=== PATIENT | female | born 1995 | race Caucasian/White ===

== ENCOUNTER 2022-11-06 12:29 | Inpatient (IN) ==
[2022-11-06] MEDS ORDERED: KETOROLAC TROMETHAMINE 15 MG/ML VIAL IV STA (12:48)
[2022-11-06] MEDS ORDERED: SODIUM CHLORIDE 0.9% 1000ML 1,000 ML IV STA (12:48)
[2022-11-06] MEDS ORDERED: ONDANSETRON INJ 2 MG/ML 2 ML VIAL IV STA (12:48)
--- NOTE | 2022-11-06 12:56 | Emergency Department Note ---
ED Provider Note History of Present Illness Chief Complaint: Abdominal Pain Stated Complaint: AB PAIN, VOMITING Time Seen by Provider: 11/06/22 12:35 26-year-old female who presents to the emergency department via ambulance for evaluation of generalized abdominal cramping, nausea, vomiting and watery diarrhea. The patient reports that she had soup last evening for dinner, then developed nausea and vomiting. The patient was able to go to bed, but awoke several times throughout the night, and awakened this morning with watery diarrh ea. The patient reports that she has had a recent upper endoscopy and colonoscopy, and follows with [facility]. 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 She was supposed to have an MRI study, however her insurance refused to cover it since it was closely related to her CT imaging that she has already had. The patient reports that she has a Zofran tablets at home, but was unable to keep them down. She reports feeling extremely dehydrated. The patient occasionally will self-induced vomiting to help with her pain. She does admit to daily marijuana use for history of PTSD and anxiety. She gets her marijuana from a dispensary, and has not had any prior reactions to the marijuana. The patient does report feeling chilled, but did not take her temperature at home this morning. Patient denies , urinary symptoms, recent upper respiratory infections or chest pain. The patient rates her overall discomfort a 7 out of 10. Later in the patient's evaluation, she reports that she did have a similar episode last where she was admitted to [facility] in [place] for similar episode. She does report having an initial CT, and does not know if her second imaging was a CT or MRI. She spent 4 days at their facility. Home Medications Medication Instructions Recorded Confirmed Type buspirone 5 mg tablet 5 mg PO DAILY 11/06/22 11/06/22 History escitalopram oxalate 20 mg tablet 20 mg PO DAILY 11/06/22 11/06/22 History norethindrone acetate 1.5 1 tab PO DAILY 11/06/22 11/06/22 History mg-ethinyl estradiol 30 mcg tablet (Junel) omeprazole 20 mg capsule,delayed 20 mg PO DAILY 11/06/22 11/06/22 History release ondansetron HCl 4 mg tablet 4 mg PO Q8H PRN Vomiting 03/10/23 03/10/23 History Allergies Allergy/AdvReac Type Severity Reaction Status Date / Time No Known Allergies Allergy Verified 11/05/20 16:17 Past Med/Surg History Medical History Anxiety COVID-19 History of varicella vaccination HPV (human papilloma virus) infection No significant past medical history Surgical History History of colonoscopy History of esophagogastroduodenoscopy (EGD) S/P wisdom tooth extraction Family History Grandmother (Paternal) Breast cancer Grandfather (Paternal) Diabetes Mother Dyslipidemia Denies family history of Ovarian cancer Colorectal cancer Uterine cancer Social History Smoking Status: Never smoker Second Hand Exposure: No; Hx Alcohol Use: No Hx Substance Use: Yes (medical marijuana card) Prescribed Medications: Marijuana Last Used Substance: Hours (ago) Preferred Language: Hong Konger Visual Impairment: No Limitations Hearing Ability: Normal Pomology Teacher Required: No Beliefs That Will Affect Care: None marital status: Single Current Living Situation: Alone current occupational status: employed Feels Safe at Home: Yes Childhood Exposure to Second-Hand Smoke: No Dental Care, Regularly: Yes Physical Activity Frequency: 3-4 Times per Week Seatbelt Use: always Sunscreen Use: Yes Physical Exam Vital Signs Vital Signs - 24 hr 11/06/22 12:35 11/06/22 14:00 11/06/22 15:23 Temperature 36.6 C Temperature Source Oral Pulse Rate 88 Pulse Rate [Radial] 81 86 Pulse Rhythm [Radial] Regular Pulse Strength [Radial] Normal Respiratory Rate 16 15 20 Respiratory Effort / Characteristics Non-Labored Spontaneous Non-Labored Spontaneous Non-Labored Respiratory Depth Normal Normal Normal Respiratory Pattern Regular Regular Blood Pressure 127/88 Blood Pressure [Right Arm] 154/97 H 104/68 Blood Pressure Mean 101 Blood Pressure Mean [Right Arm] 116 80 Blood Pressure Position Lying Blood Pressure Position [Right Arm] Lying Pulse Oximetry 99 98 95 Oxygen Delivery Method Room Air Room Air Room Air Sepsis Recent Fever Within 48 Hours No Sepsis New/Unexplained Change in Mental Status N/A Sepsis Action Taken by Nursing No Action Required CONSTITUTIONAL: Healthy and well nourished. Patient appears in moderate discomfort, holding an emesis bag. HEENT: Normocephalic, atraumatic. Pupils equal, round and reactive. No scleral icterus or conjunctival injection/pallor. Mucous membranes are dry. NECK: Full active range of motion without discomfort. LYMPHATICS: No cervical chain adenopathy. RESPIRATORY: Clear to auscultation bilaterally with no wheezing, crackles, rhonchi or stridor. CARDIOVASCULAR: Regular rate and rhythm with no murmurs, rubs or gallops. GASTROINTESTINAL: Bowel sounds present in all quadrants. Patient has generalized and nonfocal abdominal tenderness to palpation without rigidity, guarding or rebound. Negative CVA tenderness. Negative McBurney's point tenderness. MUSCULOSKELETAL: Full range of motion of all joints without discomfort. INTEGUMENTARY: No rash or other significant dermatologic conditions noted. HEMATOLOGIC: No ecchymosis or petechiae. PSYCHIATRIC: Positive affect. NEUROLOGIC: No focal neurologic deficits noted. Course Course Patient history and physical exam were performed. Nurses notes were reviewed. Vital signs were reviewed and were normal. I did review prior medical records. Unfortunately I do not have easy access to [facility] records. I am able to see her PCP office notes, and showed that she had explosive diarrhea 1 year ago with negative stool cultures and C. difficile testing. IV access was established, and labs were drawn. The patient was hydrated with a liter of normal saline, and administered IV Toradol and Zofran for pain and nausea. Review of labs shows an elevated white count of over 14,000, and elevated platelet count of 412. While awaiting the remainder of her labs to come back, I did reassess the patient who reported persistent nausea after 2 doses of IV Zofran (1 being administered on route to the ED). The patient was then ordered IV Phenergan. Further review of labs shows relatively normal CMP. CT with IV contrast of the abdomen and pelvis shows multiple thickened distal small bowel loops resulting in an upstream bowel obstruction. Further review of labs shows a mildly elevated random glucose and elevated C-reactive protein of 2.21. Urinalysis shows 4+ ketonuria and trace leukocyte esterases. This was a contaminated sample, and urine cultures are pending. Serum was negative. Urine drug screen was only positive for marijuana. The case was further discussed with Dr. Bey, ED attending physician, who recommended hospitalist consultation. The patient was reevaluated and reported feeling much better after IV Phenergan. She was actually able to go to the bathroom and produce a small bowel movement. Findings were discussed with the patient, with recommendations for admission; the patient was in agreement. COVID-19 swab was ordered and was normal. The case was further discussed with the [facility] team, who agrees with admission. Please see their dictation for further treatment and final disposition. Administered Medications Sodium Chloride (Nss 1000ml) 1,000 mls @ 125 mls/hr IV .Q8H ADAM Stop: 11/07/22 09:42 Last Admin: 11/06/22 18:13 Dose: 125 mls/hr Documented By: CALE Methylprednisolone (Methylprednisolone 40 Mg/Ml Vial) 40 mg IV DAILY ADAM Stop: 11/09/22 17:42 Last Admin: 11/06/22 18:44 Dose: Not Given Documented By: CALE Discontinued Medications Sodium Chloride (Nss 1000ml) 1,000 mls @ 999 mls/hr IV .Q1H1M STA Stop: 11/06/22 13:48 Last Infusion: 11/06/22 14:14 Dose: 0 mls/hr Documented By: Admin: 11/06/22 13:06 Dose: 999 mls/hr Documented By: MARBELLA Promethazine HCl (Phenergan) 25 mg in 51 mls @ 204 mls/hr IV NOW STA Stop: 11/06/22 13:59 Last Infusion: 11/06/22 14:14 Dose: 0 mls/hr Documented By: Admin: 11/06/22 13:56 Dose: 204 mls/hr Documented By: MARBELLA Ioversol (Optiray 350 100ml) 90 ml IV ONCE ONE Stop: 11/06/22 14:22 Last Admin: 11/06/22 14:21 Dose: 90 ml Documented By: SETH Ketorolac Tromethamine (Ketorolac Tromethamine 15 Mg/Ml Vial) 10 mg IV NOW STA Stop: 11/06/22 12:49 Last Admin: 11/06/22 13:06 Dose: 10 mg Documented By: MARBELLA Ondansetron HCl (Ondansetron Inj 2 Mg/Ml 2 Ml Vial) 4 mg IV NOW STA Stop: 11/06/22 12:49 Last Admin: 11/06/22 13:06 Dose: 4 mg Documented By: MARBELLA Medical Decision Making Medical Records Attestation: I reviewed the patient's medical records. Home Medications was personally reviewed by me Laboratory Data Attestation: I reviewed the patient's lab results. 11/06/22 12:56 11/06/22 12:56 Lab Results 11/06/22 11/06/22 11/06/22 Range/Units 12:55 12:56 12:56 WBC 14.06 H (4.8-10.8) K/ul RBC 4.89 (4.20-5.40) M/uL Hgb 13.9 (12.0-16.0) g/dl Hct 41.3 (37.0-47.0) % MCV 84.5 (80.0-100.0) fL MCH 28.4 (25.0-34.0) pg MCHC 33.7 (32.0-36.0) g/dL RDW Std Deviation 41.1 (36.4-46.3) fL RDW Coeff of Cyrus 13.2 (11.5-14.5) % Plt Count 412 H (130-400) K/uL MPV 9.1 L (9.4-12.4) fL Immature Gran % (Auto) 0.4 % Neut % (Auto) 93.9 % Lymph % (Auto) 4.2 % Lassen % (Auto) 1.4 % Eos % (Auto) 0.0 % Baso % (Auto) 0.1 % Neut # (Auto) 13.19 H (1.40-6.50) K/uL Lymph # (Auto) 0.59 L (1.2-3.4) K/uL Lassen # (Auto) 0.20 (0.11-0.59) K/uL Eos # (Auto) 0.00 (0-0.50) K/uL Baso # (Auto) 0.02 (0-0.2) K/uL Immature Gran # (Auto) 0.06 (0.01-0.20) K/uL Sodium 138 (136-145) mmol/L Potassium 3.7 (3.5-5.1) mmol/L Chloride 105 (98-107) mmol/L Carbon Dioxide 19 L (21-32) mmol/L Anion Gap 14 H (3-11) BUN 9 (6-23) mg/dl Creatinine 0.80 (0.6-1.2) mg/dl Est Cr Clr Drug Dosing 103.8 ml/min Est GFR ( Amer) 116.3 ml/min Est GFR (Non-Af Amer) 100.3 ml/min BUN/Creatinine Ratio 11.3 (10-20) Glucose 129 H (70-99(Fasting)) mg/dl Calcium 9.5 (8.5-10.1) mg/dl Total Bilirubin 0.5 (0.2-1.0) mg/dl AST 18 (13-39) U/L ALT 15 (7-52) U/L Alkaline Phosphatase 42 (34-104) U/L C-Reactive Protein (0-0.5) mg/dl Total Protein 7.6 (6.0-8.3) gm/dl Albumin 4.3 (3.4-5.0) gm/dl Globulin 3.3 (2.5-4.0) gm/dl Albumin/Globulin Ratio 1.3 (0.9-2) Lipase 11 (11-82) U/L HCG, Qual (Negative) Urine Color Yellow Urine Appearance Clear (Clear) Urine pH 6.0 (4.5-7.5) Ur Specific Cushing 1.028 (1.000-1.030) Urine Protein Trace H (Negative) Urine Glucose (UA) Negative (Negative) Urine Ketones 4+ H (Negative) Urine Blood Negative (Negative) Urine Nitrite Negative (Negative) Urine Bilirubin Negative (Negative) Urine Urobilinogen Negative (Negative) Ur Leukocyte Esterase Trace H (Negative) Urine WBC (Auto) 5-10 H (0-5) /hpf Urine RBC (Auto) 5-10 H (0-4) /hpf U Hyaline Cast (Auto) 5-10 H (0-5) /lpf U Epithel Cells (Auto) >30 H (0-5) /lpf Urine Bacteria (Auto) 1+ H (Negative) Urine Opiates Screen (Neg) Ur Methadone, Qual (Neg) Urine Barbiturates (Neg) Ur Phencyclidine (PCP) (Neg) U Amphetamin/Meth Scrn (Neg) MDMA (Ecstasy) Screen (Neg) U Benzodiazepines Scrn (Neg) Ur Cocaine Metabolite (Neg) U Marijuana (THC) Screen (Neg) SARS-CoV-2, RNA, NAAT (NEGATIVE) 11/06/22 11/06/22 11/06/22 Range/Units 12:56 12:56 13:56 WBC (4.8-10.8) K/ul RBC (4.20-5.40) M/uL Hgb (12.0-16.0) g/dl Hct (37.0-47.0) % MCV (80.0-100.0) fL MCH (25.0-34.0) pg MCHC (32.0-36.0) g/dL RDW Std Deviation (36.4-46.3) fL RDW Coeff of Cyrus (11.5-14.5) % Plt Count (130-400) K/uL MPV (9.4-12.4) fL Immature Gran % (Auto) % Neut % (Auto) % Lymph % (Auto) % Lassen % (Auto) % Eos % (Auto) % Baso % (Auto) % Neut # (Auto) (1.40-6.50) K/uL Lymph # (Auto) (1.2-3.4) K/uL Lassen # (Auto) (0.11-0.59) K/uL Eos # (Auto) (0-0.50) K/uL Baso # (Auto) (0-0.2) K/uL Immature Gran # (Auto) (0.01-0.20) K/uL Sodium (136-145) mmol/L Potassium (3.5-5.1) mmol/L Chloride (98-107) mmol/L Carbon Dioxide (21-32) mmol/L Anion Gap (3-11) BUN (6-23) mg/dl Creatinine (0.6-1.2) mg/dl Est Cr Clr Drug Dosing ml/min Est GFR ( Amer) ml/min Est GFR (Non-Af Amer) ml/min BUN/Creatinine Ratio (10-20) Glucose (70-99(Fasting)) mg/dl Calcium (8.5-10.1) mg/dl Total Bilirubin (0.2-1.0) mg/dl AST (13-39) U/L ALT (7-52) U/L Alkaline Phosphatase (34-104) U/L C-Reactive Protein 2.21 H (0-0.5) mg/dl Total Protein (6.0-8.3) gm/dl Albumin (3.4-5.0) gm/dl Globulin (2.5-4.0) gm/dl Albumin/Globulin Ratio (0.9-2) Lipase (11-82) U/L HCG, Qual Negative (Negative) Urine Color Urine Appearance (Clear) Urine pH (4.5-7.5) Ur Specific Cushing (1.000-1.030) Urine Protein (Negative) Urine Glucose (UA) (Negative) Urine Ketones (Negative) Urine Blood (Negative) Urine Nitrite (Negative) Urine Bilirubin (Negative) Urine Urobilinogen (Negative) Ur Leukocyte Esterase (Negative) Urine WBC (Auto) (0-5) /hpf Urine RBC (Auto) (0-4) /hpf U Hyaline Cast (Auto) (0-5) /lpf U Epithel Cells (Auto) (0-5) /lpf Urine Bacteria (Auto) (Negative) Urine Opiates Screen Neg (Neg) Ur Methadone, Qual Neg (Neg) Urine Barbiturates Neg (Neg) Ur Phencyclidine (PCP) Neg (Neg) U Amphetamin/Meth Scrn Neg (Neg) MDMA (Ecstasy) Screen Neg (Neg) U Benzodiazepines Scrn Neg (Neg) Ur Cocaine Metabolite Neg (Neg) U Marijuana (THC) Screen Pos H (Neg) SARS-CoV-2, RNA, NAAT (NEGATIVE) 11/06/22 Range/Units 15:00 WBC (4.8-10.8) K/ul RBC (4.20-5.40) M/uL Hgb (12.0-16.0) g/dl Hct (37.0-47.0) % MCV (80.0-100.0) fL MCH (25.0-34.0) pg MCHC (32.0-36.0) g/dL RDW Std Deviation (36.4-46.3) fL RDW Coeff of Cyrus (11.5-14.5) % Plt Count (130-400) K/uL MPV (9.4-12.4) fL Immature Gran % (Auto) % Neut % (Auto) % Lymph % (Auto) % Lassen % (Auto) % Eos % (Auto) % Baso % (Auto) % Neut # (Auto) (1.40-6.50) K/uL Lymph # (Auto) (1.2-3.4) K/uL Lassen # (Auto) (0.11-0.59) K/uL Eos # (Auto) (0-0.50) K/uL Baso # (Auto) (0-0.2) K/uL Immature Gran # (Auto) (0.01-0.20) K/uL Sodium (136-145) mmol/L Potassium (3.5-5.1) mmol/L Chloride (98-107) mmol/L Carbon Dioxide (21-32) mmol/L Anion Gap (3-11) BUN (6-23) mg/dl Creatinine (0.6-1.2) mg/dl Est Cr Clr Drug Dosing ml/min Est GFR ( Amer) ml/min Est GFR (Non-Af Amer) ml/min BUN/Creatinine Ratio (10-20) Glucose (70-99(Fasting)) mg/dl Calcium (8.5-10.1) mg/dl Total Bilirubin (0.2-1.0) mg/dl AST (13-39) U/L ALT (7-52) U/L Alkaline Phosphatase (34-104) U/L C-Reactive Protein (0-0.5) mg/dl Total Protein (6.0-8.3) gm/dl Albumin (3.4-5.0) gm/dl Globulin (2.5-4.0) gm/dl Albumin/Globulin Ratio (0.9-2) Lipase (11-82) U/L HCG, Qual (Negative) Urine Color Urine Appearance (Clear) Urine pH (4.5-7.5) Ur Specific Cushing (1.000-1.030) Urine Protein (Negative) Urine Glucose (UA) (Negative) Urine Ketones (Negative) Urine Blood (Negative) Urine Nitrite (Negative) Urine Bilirubin (Negative) Urine Urobilinogen (Negative) Ur Leukocyte Esterase (Negative) Urine WBC (Auto) (0-5) /hpf Urine RBC (Auto) (0-4) /hpf U Hyaline Cast (Auto) (0-5) /lpf U Epithel Cells (Auto) (0-5) /lpf Urine Bacteria (Auto) (Negative) Urine Opiates Screen (Neg) Ur Methadone, Qual (Neg) Urine Barbiturates (Neg) Ur Phencyclidine (PCP) (Neg) U Amphetamin/Meth Scrn (Neg) MDMA (Ecstasy) Screen (Neg) U Benzodiazepines Scrn (Neg) Ur Cocaine Metabolite (Neg) U Marijuana (THC) Screen (Neg) SARS-CoV-2, RNA, NAAT NEGATIVE (NEGATIVE) Imaging Data Attestation: I personally reviewed and interpreted this imaging study as follows: My Impression: My interpretation of the CT with IV contrast of the abdomen and pelvis shows evidence for a small bowel obstruction with thickening of the distal small bowel loops. No abdominal free air appreciated. Radiologist report was also reviewed with concurrence. Radiologist's Impression: Abdomen/Pelvis CT 11/06/22 12:48 CT SCAN OF THE ABDOMEN AND PELVIS WITH IV CONTRAST CLINICAL HISTORY: Generalized abdominal pain. Nausea and vomiting. COMPARISON STUDY: No priors. TECHNIQUE: Following the IV administration of 90 cc of Optiray 350, CT scan of the abdomen and pelvis is performed from the lung bases to the proximal femora. Images are reviewed in the axial, sagittal, and coronal planes. IV contrast was administered without complication. A dose lowering technique was utilized adhering to the principles of ALARA. CT DOSE: 310.44 mGy.cm FINDINGS: Lung bases: The heart is normal in size and without pericardial effusion. The lung bases are clear. A small hiatal hernia is noted. Liver: The contrast-enhanced liver is mildly enlarged measuring 20.5 cm in length. The liver is otherwise normal in contour and attenuation. There is no intrahepatic biliary ductal dilatation. The hepatic veins and portal veins are patent. A 1.4 cm low-attenuation lesion in the right lobe of the liver seen on image #33 of 94 shows foci of peripheral nodular enhancement and likely represents a hemangioma. Gallbladder: Unremarkable. Spleen: Normal in size and attenuation. Pancreas: Unremarkable. Adrenal glands: Unremarkable. Kidneys: The contrast enhanced kidneys are normal in size and without hydronephrosis. The kidneys enhance symmetrically. Abdominal vasculature: The abdominal aorta is normal in course and caliber. Bowel: There are significantly thick-walled and hyperemic loops of mid to distal small bowel in the central pelvis with surrounding inflammation and interloop fluid. This appears to be at the distal/terminal ileum. There is a focal transition point within these inflamed bowel loops seen on axial image #374. The upstream small bowel loops are dilated and fluid-filled, measuring up to 5.1 cm in diameter. This is consistent with a small bowel obstruction related to the inflammatory process. The distal small bowel and colon are decompressed. There is no evidence of fistula or mass lesion. No pneumatosis intestinalis or portal venous gas is seen. There is no organized fluid collection to suggest abscess. The appendix is well-visualized and normal. Peritoneum: There is no intraperitoneal free air. There is free fluid in the pelvis. Lymphadenopathy: None. Pelvic viscera: The bladder is decompressed and appears thick walled. The uterus and adnexa are normal as visualized. A moderate volume of free fluid is noted in the cul-de-sac. Skeletal structures: There is mild lumbar scoliosis. No lytic or blastic lesions are seen. IMPRESSION: 1. There are significantly thick-walled and hyperemic loops of mid to distal small bowel in the pelvis with surrounding inflammation and interloop fluid. The appearance is consistent with a nonspecific enteritis, and this could be infectious or related to inflammatory bowel disease. 2. The inflamed bowel loops cause upstream small bowel obstruction. 3. There is a moderate volume of free fluid in the cul-de-sac. 4. No intraperitoneal free air is identified. No organized fluid collection is seen suggest abscess. 5. The bladder is decompressed and appears thick-walled. Correlate with clinical findings and urinalysis. 6. An indeterminant low-attenuation hepatic lesion is incompletely characterized but likely represents a hemangioma. 7. Additional findings as above. ACT 112: Negative or not required by law. Electronically signed by: Marcio Knapp M.D. 11/06/2022 2:45 PM MDM Narrative See ED course for further details of today's visit. The patient presents to the emergency department with complaint of generalized abdominal pain, nausea, vomiting and watery diarrhea. Given the patient's history of distal small bowel stenosis, I did recommend CT imaging, which showed a small bowel obstruction with notable inflammation of distal small bowel loops. Patient did have excellent nausea control with additional IV Phenergan, which was administered after 2 initial doses of IV Zofran. At this point, I do feel that the patient warrants observation or admission until her small bowel obstruction reverses. I suspect the hospitalist team may also consider doing MRI enterography as well for further characterization of the distal small bowel loops. Patient does not have any free air on CT imaging to suggest perforation. Additional laboratory studies are not suggestive of pancreatitis, cholecystitis or hepatitis. CT imaging also does not show evidence for appendicitis, diverticulitis or obstructive uropathy. Impression Small bowel obstruction, Nausea, vomiting and diarrhea Discharge Plan Visit Data Chief Complaint: Abdominal Pain Stated Complaint: AB PAIN, VOMITING ED Provider: Efra Bey ED Midlevel Provider: Jerry Tello Discharge Problem: Small bowel obstruction, Nausea, vomiting and diarrhea Patient Disposition: Admitted As Inpatient Discharge Instructions Interventions: ED Discharge Assessment Last Done: 11/06/22 17:16
[2022-11-06 13:29] LABS: Hematocrit (blood only) 41.3 % (37.0-47.0); Hemoglobin 13.9 g/dl (12.0-16.0); Mean Corpuscular Hemoglobin 28.4 pg (25.0-34.0); Mean Corpuscular Hgb Conc 33.7 g/dL (32.0-36.0); Mean Corpuscular Volume 84.5 fL (80.0-100.0); Mean Platelet Volume 9.1 fL (9.4-12.4); Platelet Count 412 K/uL (130-400); RDW Coefficient of Variation 13.2 % (11.5-14.5); RDW Standard Deviation 41.1 fL (36.4-46.3); Red Blood Count 4.89 M/uL (4.20-5.40); White Blood Count 14.06 K/ul (4.8-10.8)
[2022-11-06 13:43] LABS: Albumin Globulin Ratio 1.3 (0.9-2); Albumin Level 4.3 gm/dl (3.4-5.0); BUN Creatinine Ratio 11.3 (10-20); Bilirubin,Total 0.5 mg/dl (0.2-1.0); Calcium 9.5 mg/dl (8.5-10.1); Creatinine Clr Calc Pharmacy 103.8 ml/min; Est GFR (African American) 116.3 ml/min; Est GFR (Non-African American) 100.3 ml/min; Globulin 3.3 gm/dl (2.5-4.0); Potassium 3.7 mmol/L (3.5-5.1); Total Protein 7.6 gm/dl (6.0-8.3)
[2022-11-06] MEDS ORDERED: PROMETHAZINE 25 MG/51 ML BAG IV STA (13:45)
[2022-11-06 13:47] LABS: Basophils # (auto) 0.02 K/uL (0-0.2); Basophils % (auto) 0.1 %; Immature Granulocytes # (auto) 0.06 K/uL (0.01-0.20); Immature Granulocytes % (auto) 0.4 %; Lymphocytes # (auto) 0.59 K/uL (1.2-3.4); Lymphocytes % (auto) 4.2 %; Monocytes % (auto) 1.4 %; Neutrophils # (auto) 13.19 K/uL (1.40-6.50); Neutrophils % (auto) 93.9 %
[2022-11-06 14:06] LABS: Pregnancy Test, Serum Negative (Negative)
[2022-11-06] MEDS ORDERED: OPTIRAY 350 100ml IV ONE (14:21)
[2022-11-06 14:38] LABS: Appearance Urine Clear (Clear); Bacteria Urine Automated 1+ (Negative); Bilirubin Urine Negative (Negative); Blood Urine Negative (Negative); Color Urine Yellow; Epithelial Cell Urine Auto >30 /lpf (0-5); Glucose Urine UA Negative (Negative); Ketones Urine 4+ (Negative); Leukocyte Esterase Urine Trace (Negative); Nitrite Urine Negative (Negative); Protein Urine Trace (Negative); Specific Gravity Urine 1.028 (1.000-1.030); Urobilinogen Urine Negative (Negative)
[2022-11-06 14:44] LABS: Amphetamines+Metham, Urine Neg (Neg); Barbiturates, Urine Neg (Neg); Benzodiazepine, Urine Neg (Neg); Cocaine, Urine Neg (Neg); MDMA (Ecstacy), Urine Neg (Neg); Methadone, Urine Neg (Neg); Opiate, Urine Neg (Neg); Phencyclidine, Urine Neg (Neg)
--- NOTE | 2022-11-06 14:47 | CT Scan Report ---
CT SCAN OF THE ABDOMEN AND PELVIS WITH IV CONTRAST CLINICAL HISTORY: Generalized abdominal pain. Nausea and vomiting. COMPARISON STUDY: No priors. TECHNIQUE: Following the IV administration of 90 cc of Optiray 350, CT scan of the abdomen and pelvi s is performed from the lung bases to the proximal femora. Images are reviewed in the axial, sagittal , and coronal planes. IV contrast was administered without complication. A dose lowering technique wa s utilized adhering to the principles of ALARA. CT DOSE: 310.44 mGy.cm FINDINGS: Lung bases: The heart is normal in size and without pericardial effusion. The lung bases are clear. A small hiatal hernia is noted. Liver: The contrast-enhanced liver is mildly enlarged measuring 20.5 cm in length. The liver is other reyes normal in contour and attenuation. There is no intrahepatic biliary ductal dilatation. The hepat ic veins and portal veins are patent. A 1.4 cm low-attenuation lesion in the right lobe of the liver seen on image #33 of 94 shows foci of peripheral nodular enhancement and likely represents a hemangio ma. Gallbladder: Unremarkable. Spleen: Normal in size and attenuation. Pancreas: Unremarkable. Adrenal glands: Unremarkable. Kidneys: The contrast enhanced kidneys are normal in size and without hydronephrosis. The kidneys enh ance symmetrically. Abdominal vasculature: The abdominal aorta is normal in course and caliber. Bowel: There are significantly thick-walled and hyperemic loops of mid to distal small bowel in the c entral pelvis with surrounding inflammation and interloop fluid. This appears to be at the distal/ter hayley ileum. There is a focal transition point within these inflamed bowel loops seen on axial image #374. The upstream small bowel loops are dilated and fluid-filled, measuring up to 5.1 cm in diameter . This is consistent with a small bowel obstruction related to the inflammatory process. The distal s mall bowel and colon are decompressed. There is no evidence of fistula or mass lesion. No pneumatosis intestinalis or portal venous gas is seen. There is no organized fluid collection to suggest abscess . The appendix is well-visualized and normal. Peritoneum: There is no intraperitoneal free air. There is free fluid in the pelvis. Lymphadenopathy: None. Pelvic viscera: The bladder is decompressed and appears thick walled. The uterus and adnexa are ignacio l as visualized. A moderate volume of free fluid is noted in the cul-de-sac. Skeletal structures: There is mild lumbar scoliosis. No lytic or blastic lesions are seen. IMPRESSION: 1. There are significantly thick-walled and hyperemic loops of mid to distal small bowel in the pelvi s with surrounding inflammation and interloop fluid. The appearance is consistent with a nonspecific enteritis, and this could be infectious or related to inflammatory bowel disease. 2. The inflamed bowel loops cause upstream small bowel obstruction. 3. There is a moderate volume of free fluid in the cul-de-sac. 4. No intraperitoneal free air is identified. No organized fluid collection is seen suggest abscess. 5. The bladder is decompressed and appears thick-walled. Correlate with clinical findings and urinaly sis. 6. An indeterminant low-attenuation hepatic lesion is incompletely characterized but likely represent s a hemangioma. 7. Additional findings as above. ACT 112: Negative or not required by law. Electronically signed by: Marcio Knapp M.D. 11/06/2022 2:45 PM
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
--- NOTE | 2022-11-06 16:15 | Communication Note ---
Date of Service: November 06, 2022 History and physical exam performed by me. 26-year-old woman who presents with intermittent nausea, vomiting, abdominal pain and bloating. This episode started last night. Has been having this intermittently for a while. Follows up with gastroenterology. Exam General: No acute distress Eyes: PERRL, conjunctivae normal, not pale, anicteric sclerae, EOM intact bilaterally ENMT: External ear and nose normal, oropharynx normal Respiratory: Normal respiratory effort, no respiratory distress, lungs clear to auscultation, no crackles and no wheezes Cardiovascular: RRR S1 S2 Gastrointestinal (Abdomen): Abdomen is not distended, soft, non-tender to palpation, no guarding, no palpable hepatosplenomegaly, normal bowel sounds Musculoskeletal: No pedal edema Neurologic: Alert and oriented x 3, No focal weakness, sensation grossly intact Psychiatric: Alert and oriented x 3, euthymic affect Labs notable for WBC of 14, platelet of 412, bicarb of 19, anion gap of [address] noted significantly thick-walled and hyperemic loops of mid to distal small bowel in the pelvis with surrounding inflammation and interloop fluid, consistent with nonspecific enteritis could be related to infectious or inflammatory bowel disease. Bowel cause upstream small bowel obstruction. Moderate volume of free fluid in the cul-de-sac. No intraperitoneal free. An indeterminate low attenuation hepatic lesion is incompletely characterized but likely representing hemangioma. We will keep n.p.o. for today. IV fluids Zofran as needed nausea and vomiting. Discussed with GI physician. GI recommends getting an MRE. Also to do Possible IBD. GI recommends IV Solu-Medrol 40 mg daily for 3 days Will follow up surg eval Other plans as detailed by Mere Busby PA-C
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
[2022-11-06] MEDS ORDERED: POLYETHYLENE (MIRALAX) 17 GM PACK PO PRN (17:43)
[2022-11-06] MEDS ORDERED: ACETAMINOPHEN 325 MG TAB PO PRN (17:43)
[2022-11-06] MEDS ORDERED: ONDANSETRON INJ 2 MG/ML 2 ML VIAL IV PRN (17:43)
[2022-11-06] MEDS: SODIUM CHLORIDE 0.9% 1000ML 1,000 ML IV SCH (18:13)
[2022-11-06] MEDS: methylPREDNISolone 40 MG in SYRINGE 0 ML IV SCH (20:47)
[2022-11-07] MEDS: SODIUM CHLORIDE 0.9% 1000ML 1,000 ML IV SCH (01:47)
[2022-11-07 06:38] LABS: Hemoglobin 10.8 g/dl (12.0-16.0); Immature Granulocytes # (auto) 0.05 K/uL (0.01-0.20); Immature Granulocytes % (auto) 0.7 %; Lymphocytes # (auto) 0.75 K/uL (1.2-3.4); Lymphocytes % (auto) 9.9 %; Mean Corpuscular Hgb Conc 33.8 g/dL (32.0-36.0); Mean Corpuscular Volume 85.8 fL (80.0-100.0); Mean Platelet Volume 8.9 fL (9.4-12.4); Monocytes # (auto) 0.09 K/uL (0.11-0.59); Monocytes % (auto) 1.2 %; Neutrophils # (auto) 6.69 K/uL (1.40-6.50); Neutrophils % (auto) 88.2 %; Platelet Count 295 K/uL (130-400); RDW Coefficient of Variation 13.6 % (11.5-14.5); RDW Standard Deviation 42.6 fL (36.4-46.3); Red Blood Count 3.73 M/uL (4.20-5.40); White Blood Count 7.58 K/ul (4.8-10.8)
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
[2022-11-07 06:55] LABS: Albumin Globulin Ratio 1.4 (0.9-2); Albumin Level 3.2 gm/dl (3.4-5.0); BUN Creatinine Ratio 10.6 (10-20); Bilirubin,Total 0.3 mg/dl (0.2-1.0); Creatinine Clr Calc Pharmacy 141.8 ml/min; Est GFR (African American) 139.3 ml/min; Est GFR (Non-African American) 120.2 ml/min; Globulin 2.3 gm/dl (2.5-4.0); Total Protein 5.5 gm/dl (6.0-8.3)
[2022-11-07] MEDS ORDERED: ESCITALOPRAM OXALATE 20 MG TAB PO SCH (09:00)
[2022-11-07] MEDS ORDERED: busPIRone 5 MG TAB PO SCH (09:00)
[2022-11-07] MEDS: methylPREDNISolone 40 MG in SYRINGE 0 ML IV SCH (09:54)
[2022-11-07] MEDS ORDERED: PANTOprazole 40 MG in SYRINGE 0 ML IV SCH (11:00)
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
[2022-11-09 15:12] LABS: Marijuana Quant, GCMS Urine 130 ng/mL (<5)
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
== END 2022-11-07 17:10 | disposition home or self-care (01) | DRG 390 ==
LOC: ED 12:29 → 2N 16:08 → SUATTDRO 16:08 → 2N 17:16